=== PATIENT | female | born 1960 | race Caucasian/White ===

== ENCOUNTER 2016-09-14 06:57 | Emergency (ER) | payer BC ==
[~2016-09-14] VITALS: Ht 167.6 cm; Wt 81.6 kg
[2016-09-14 07:16] VITALS: BP 146/71
[2016-09-14] MEDS ORDERED: ATOR20TA PO (07:16)
[2016-09-14] MEDS ORDERED: AMLO10TA2 PO (07:16)
[2016-09-14] MEDS ORDERED: ORPH100T PO (07:37)
[2016-09-14] MEDS ORDERED: HYDR-971 PO (07:37)
[2016-09-14] MEDS ORDERED: PRED50TA PO (07:37)
--- NOTE | 2016-09-14 07:37 | PHYS DOC ---
Past Medical History Past Medical History: High Cholesterol, Hypertension Past Surgical History: No Surgical History Additional Information: 6-8 cigarettes daily Alcohol Use: None Drug Use: None Adult General Chief Complaint Chief Complaint: LOWER BACK PAIN OR INJURY [facility] HPI Patient is a 56 year old female presents to the emergency room today with complaint of atraumatic left lower back pain that radiates down her left leg that began yesterday. Patient states that she was attempting to get out of a chair at work yesterday when she felt sudden pain in the left lower back, again with radiation down her left leg. She denies saddle anesthesia or incontinence of urine and bowel. Patient denies history of spinal column or spinal cord injuries. Patient states that she does have a history of degenerative disc disease in her cervical spine. She denies any history of neuromuscular diseases. Review of Systems Review of Systems Constitutional: Denies fever or chills [] Eyes: Denies change in visual acuity, redness, or eye pain [] HENT: Denies nasal congestion or sore throat [] Respiratory: Denies cough or shortness of breath [] Cardiovascular: No additional information not addressed in HPI [] GI: Denies abdominal pain, nausea, vomiting, bloody stools or diarrhea [] : Denies dysuria or hematuria [] Musculoskeletal: Denies back pain or joint pain [] Integument: Denies rash or skin lesions [] Neurologic: Denies headache, focal weakness or sensory changes [] Endocrine: Denies polyuria or polydipsia [] Allergies Allergies Allergies Coded Allergies Type Severity Reaction Last Updated Verified No Known Drug Allergies 09/14/16 No Physical Exam Physical Exam Constitutional: Well developed, well nourished, no acute distress, non-toxic appearance. [] HENT: Normocephalic, atraumatic, bilateral external ears normal, oropharynx moist, no oral exudates, nose normal. [] Eyes: PERRLA, EOMI, conjunctiva normal, no discharge. [] Neck: Normal range of motion, no tenderness, supple, no stridor. [] Cardiovascular:Heart rate regular rhythm, no murmur [] Lungs & Thorax: Bilateral breath sounds clear to auscultation [] Abdomen: Bowel sounds normal, soft, no tenderness, no masses, no pulsatile masses. [] Skin: Warm, dry, no erythema, no rash. [] Back: Patient's back is normal in appearance. There is tenderness to palpation left paraspinous soft tissues at the level of L4-L5. There is tenderness to palpation along the posterior left hip and down into the left buttocks consistent with sciatic nerve irritation. Extremities: No tenderness, no cyanosis, no clubbing, ROM intact, no edema. [] Neurologic: Alert and oriented X 3, normal motor function, normal sensory function, no focal deficits noted. Bilateral leg strength is equal. There are no dystrophic changes to either lower extremity. Positive straight leg raise at 40 of flexion. Patient does ambulate with a steady, antalgic gait. Psychologic: Affect normal, judgement normal, mood normal. [] Current Patient Data Vital Signs Vital Signs Date Time Temp Pulse Resp B/P Pulse Ox O2 Delivery O2 Flow Rate FiO2 09/14/16 07:16 98.6 92 20 96 Room Air 98.6 EKG EKG [] Radiology/Procedures Radiology/Procedures [] Course & Med Decision Making Course & Med Decision Making Pertinent Labs and Imaging studies reviewed. (See chart for details) [] Dragon Disclaimer Dragon Disclaimer This electronic medical record was generated, in whole or in part, using a voice recognition dictation system. Departure Departure Impression: Primary Impression: Sciatica Condition: GOOD Referrals: PIYUSH GALVAN (PCP) Patient Instructions: Sciatica, [id number] Additional Instructions: 1. Take the medications as prescribed. 2. Review the discharge instructions provided for self-care and reasons to return to the emergency department. 3. Contact your primary care doctor this afternoon to schedule follow-up appointment for next week. Scripts Prednisone 50 Mg [id number] Mg PO DAILY inflammation of the nerve trac 5 Days Prov:STEVE BLAKE 09/14/16 Orphenadrine Citrate 100 Mg Tablet.er100 Mg PO every 12 hours muscle relaxer # 14 Prov:STEVE BLAKE 09/14/16 Hydrocodone/Apap 5-325 ([place] 5-325 Tablet)1 Each Tablet1 Tab PO PRN Q6HRS PRN PAIN #15 TAB Prov:STEVE BLAKE 09/14/16 STEVE BLAKE Sep 14, 2016 07:37
== END 2016-09-14 07:53 | disposition home or self-care (01) ==
LOC: ER 06:57
DX: M54.30 Sciatica, unspecified side (principal); I10 Essential (primary) hypertension; E78.00 Pure hypercholesterolemia, unspecified
CPT/HCPCS: 99283